=== PATIENT | female | born 1965 | race Two or more races ===

== ENCOUNTER 2023-10-07 12:28 | Inpatient (IN) | payer MEDICAID ==
[~2023-10-07] VITALS: Ht 167.6 cm; Wt 84.0 kg
[2023-10-07 14:18] LABS: Urine Bacteria None Seen /hpf (None Seen)
[2023-10-07 14:41] LABS: Basophils # (auto) 0.1 10 ^3/uL (0-0.2); Basophils % (auto) 1.2 % (0.0-2.0); Eosinophils # (auto) 1.2 10 ^3/uL (0-0.8); Eosinophils % (auto) 12.3 % (0.0-7.0); Hemoglobin 12.3 g/dL (12.2-16.2); Lymphocytes # (auto) 2.2 10 ^3/uL (0.4-5.4); Lymphocytes % (auto) 21.6 % (10.0-50.0); Mean Corpuscular Hemoglobin 30.8 pg (28.0-32.0); Mean Corpuscular Hgb Conc. 34.1 g/dL (32.0-36.0); Mean Corpuscular Volume 90.4 fL (80.0-100.0); Monocytes # (auto) 0.6 10 ^3/uL (0-1.3); Monocytes % (auto) 6.2 % (0.0-12.0); Neutrophils # (auto) 5.8 10 ^3/uL (1.6-8.6); Neutrophils % (auto) 58.7 % (37.0-80.0); Red Blood Cells 3.98 10^6/uL (4.0-5.20); Red Cell Distribution Width 15.1 % (11.8-14.3); White Blood Cell 9.9 10^3/uL (4.4-10.8)
[2023-10-07 14:51] LABS: Urine Blood Negative /uL (Negative); Urine Clarity Clear (Clear); Urine Color Yellow (Yellow); Urine Hyaline Cast FEW /lpf (0 - 2); Urine Mucus FEW (None Seen); Urine Protein, UAD Negative (Negative); Urine Specific Gravity 1.022 (1.001-1.035); Urine Urobilinogen Normal (Negative); Urine WBC 1 /hpf (0 - 5)
[2023-10-07 15:07] LABS: Alanine Aminotransferase 18 U/L (7-40); Albumin 4.1 g/dL (3.2-4.8); Alkaline Phosphatase 70 U/L (46-116); Anion Gap 8 (5-15); Aspartate Aminotransferase 13 U/L (13-40); BUN/Creatinine Ratio 22.4 (10.0-20.0); Bilirubin, Total 0.4 mg/dL (0.2-1.0); Blood Urea Nitrogen 19 mg/dL (9-23); Calcium 9.6 mg/dL (8.7-10.4); Carbon Dioxide 28 mmol/L (20-30); Chloride 104 mmol/L (98-107); Glucose 99 mg/dL (74-106); Potassium 4.1 mmol/L (3.5-5.1); Sodium 140 mmol/L (136-145); Total Protein 6.7 g/dL (5.7-8.2)
[2023-10-07] MEDS: NITROGLYCERIN 0.4 MG SL TAB SL ONE (15:30)
[2023-10-07] MEDS: ASPirin 325 MG TAB PO ONE (16:19)
[2023-10-07] MEDS ORDERED: ACETAMINOPHEN 325 MG TAB PO PRN (16:45)
[2023-10-07] MEDS ORDERED: HYDROcodone-ACET 5/325MG TAB PO PRN (16:45)
[2023-10-07] MEDS ORDERED: ONDANSETRON HCL 4 MG/2 ML VIAL IV PRN (16:45)
[2023-10-07] MEDS ORDERED: NITROGLYCERIN 0.4 MG SL TAB SL PRN (16:45)
[2023-10-07] MEDS ORDERED: MORPHINE SULFATE INJ 2 MG/ml SYRG IV PRN (16:45)
[2023-10-07 17:10] VITALS: PULSE 79; RESP 14; O2SAT 97
[2023-10-07 17:47] LABS: Amphetamine Screen, Urine Pos (NEGATIVE); Barbiturate Scree,Urine Neg (NEGATIVE); Benzodiazephine Screen, Urine Neg (NEGATIVE); Cannabinoid Screen, Urine Pos (NEGATIVE); Cocaine Screen, Urine Neg (NEGATIVE); Opiate Scree,Urine Neg (NEGATIVE); Phencyclidine Screen, Urine Neg (NEGATIVE)
[2023-10-07 22:10] VITALS: PULSE 68
[2023-10-07] MEDS: IOHEXOL 350 MG/ML 100ML IJ ONE (22:24)
[2023-10-07 22:26] VITALS: BP 105/61; PULSE 63; RESP 17; TEMP 97.8; O2SAT 98
[2023-10-07] MEDS ORDERED: ACET-6 PO (22:36)
[2023-10-07] MEDS ORDERED: BUPR450T4 PO (22:36)
[2023-10-07] MEDS ORDERED: GABA-1250 PO (22:36)
[2023-10-07] MEDS ORDERED: FAMO-12 PO (22:36)
[2023-10-08] VITALS (9 sets, daily range): BP systolic 95–140; BP diastolic 49–74; PULSE 56–66; RESP 16–22; TEMP 97.6–98.2; O2SAT 94–100
[2023-10-08] MEDS: SODIUM CHLOR 0.9% PF (SALINE LOCK) 10ML VIAL/SYR IV SCH (00:34)
[2023-10-08] MEDS: IOHEXOL 350 MG/ML 100ML IJ ONE (07:59)
[2023-10-08] MEDS: ENOXAPARIN SOD 40 MG/0.4 ML SYRINGE SC SCH (10:44)
[2023-10-08] MEDS: DOCUSATE SOD 100 MG CAP PO PRN (17:10)
[2023-10-09] VITALS (8 sets, daily range): BP systolic 99–133; BP diastolic 46–71; PULSE 53–76; RESP 15–17; TEMP 36.8; O2SAT 98–100
[2023-10-09 06:34] LABS: Hematocrit 38.2 % (36.0-46.0); Hemoglobin 13.1 g/dL (12.2-16.2); Mean Corpuscular Hemoglobin 31.2 pg (28.0-32.0); Mean Corpuscular Hgb Conc. 34.4 g/dL (32.0-36.0); Mean Corpuscular Volume 90.6 fL (80.0-100.0); Red Blood Cells 4.21 10^6/uL (4.0-5.20); Red Cell Distribution Width 15.1 % (11.8-14.3); White Blood Cell 7.9 10^3/uL (4.4-10.8)
[2023-10-09 06:44] LABS: Band Neutrophils % (manual) 0; Basophils % (manual) 0 (0.0-2.0); Blast Cells 0; Metamyelocytes % 0; Myelocytes % 0; Promyelocytes % 0; Reactive Lymphocytes 0
[2023-10-09 06:47] LABS: Chloride 107 mmol/L (98-107); Potassium 4.3 mmol/L (3.5-5.1); Sodium 142 mmol/L (136-145)
[2023-10-09 06:48] LABS: Anion Gap 4 (5-15); Carbon Dioxide 31 mmol/L (20-30)
[2023-10-09 06:49] LABS: Calcium 9.7 mg/dL (8.7-10.4)
[2023-10-09 06:54] LABS: BUN/Creatinine Ratio 17.4 (10.0-20.0); Blood Urea Nitrogen 12 mg/dL (9-23); Glucose 87 mg/dL (74-106)
[2023-10-09 07:59] LABS: Eosinophils % (manual) 18 (0-7); Large Platelets FEW; Lymphocytes % (manual) 16 (10.0-50.0); Monocytes % (manual) 9 (0-12); Platelet Estimate Adequa
== END 2023-10-09 18:10 | disposition home or self-care (01) | DRG 812 ==
LOC: ER 12:28 → TELE 17:18 → TELE-WESTW 22:10
PROVIDERS: ADMIT Internal Medicine; ATTEND Internal Medicine
DX: T40.711A Poisoning by cannabis, accidental (unintentional), initial encounter (principal); R10.30 Lower abdominal pain, unspecified; R07.89 Other chest pain; E66.9 Obesity, unspecified; F15.10 Other stimulant abuse, uncomplicated; F41.9 Anxiety disorder, unspecified; K21.9 Gastro-esophageal reflux disease without esophagitis; Z96.651 Presence of right artificial knee joint; N63.20 Unspecified lump in the left breast, unspecified quadrant; N63.10 Unspecified lump in the right breast, unspecified quadrant; Z68.30 Body mass index [BMI] 30.0-30.9, adult; Z98.84 Bariatric surgery status; Z82.49 Family history of ischemic heart disease and other diseases of the circulatory system
CPT/HCPCS: 36415; 71275; 74176; 80048; 80053; 80307; 81001; 83605; 83690; 84484; 85007; 85025; 85027; 85379; 93005; 93306; G0378

== ENCOUNTER 2023-10-15 13:00 | Inpatient (IN) | payer MEDICAID ==
[~2023-10-15] VITALS: Ht 167.6 cm; Wt 83.6 kg
[~2023-10-15 13:00] MED LIST: ACET-6 PO; BUPR450T4 PO; FAMO-12 PO; GABA-1250 PO
[2023-10-15 13:30] LABS: Hematocrit 35.6 % (36.0-46.0); Hemoglobin 12.1 g/dL (12.2-16.2); Mean Corpuscular Hemoglobin 30.6 pg (28.0-32.0); Mean Corpuscular Hgb Conc. 33.9 g/dL (32.0-36.0); Mean Corpuscular Volume 90.2 fL (80.0-100.0); Red Blood Cells 3.95 10^6/uL (4.0-5.20); Red Cell Distribution Width 14.9 % (11.8-14.3); White Blood Cell 7.6 10^3/uL (4.4-10.8)
[2023-10-15 13:49] LABS: Band Neutrophils % (manual) 0; Basophils % (manual) 0 (0.0-2.0); Blast Cells 0; Metamyelocytes % 0; Myelocytes % 0; Promyelocytes % 0; Reactive Lymphocytes 0
[2023-10-15 14:08] LABS: Chloride 105 mmol/L (98-107); Potassium 4.1 mmol/L (3.5-5.1)
[2023-10-15 14:09] LABS: Anion Gap 4 (5-15); Calcium 9.6 mg/dL (8.7-10.4); Carbon Dioxide 27 mmol/L (20-30)
[2023-10-15 14:14] LABS: BUN/Creatinine Ratio 21.3 (10.0-20.0); Blood Urea Nitrogen 13 mg/dL (9-23); Glucose 90 mg/dL (74-106)
[2023-10-15 14:15] LABS: Sodium 136 mmol/L (136-145)
[2023-10-15 14:17] LABS: Eosinophils % (manual) 9 (0-7); Lymphocytes % (manual) 27 (10.0-50.0); Monocytes % (manual) 3 (0-12); Platelet Estimate Adequate
[2023-10-16] VITALS (9 sets, daily range): BP systolic 96–115; BP diastolic 42–65; PULSE 50–85; RESP 15–20; TEMP 97.6–98.9; O2SAT 0–100
[2023-10-16] MEDS ORDERED: MORPHINE SULFATE INJ 2 MG/ml SYRG IV PRN (01:15)
[2023-10-16] MEDS ORDERED: NITROGLYCERIN 0.4 MG SL TAB SL PRN (01:15)
[2023-10-16] MEDS ORDERED: ACETAMINOPHEN 325 MG TAB PO PRN (01:15)
[2023-10-16] MEDS ORDERED: DOCUSATE SOD 100 MG CAP PO PRN (01:15)
[2023-10-16] MEDS ORDERED: ONDANSETRON HCL 4 MG/2 ML VIAL IV PRN (01:15)
[2023-10-16] MEDS: SODIUM CHLOR 0.9% PF (SALINE LOCK) 10ML VIAL/SYR IV SCH (06:00)
[2023-10-16] MEDS: FAMOTIDINE (10MG/ML) 2ML VL IV SCH (09:43)
[2023-10-16] MEDS: ASPirin 81 mg TAB PO SCH (09:43)
[2023-10-16] MEDS: HYDROcodone-ACET 5/325MG TAB PO PRN (10:13)
== END 2023-10-16 16:00 | disposition home or self-care (01) | DRG 203 ==
LOC: ER 13:00 → TELE 10-16 01:04 → TELE-WESTW 10-16 02:30
PROVIDERS: ADMIT Internal Medicine Geriatric Medicine; ATTEND Internal Medicine Geriatric Medicine
DX: R07.89 Other chest pain (principal); F41.9 Anxiety disorder, unspecified
CPT/HCPCS: 36415; 80048; 84484; 85007; 85027; 87081; G0378; J3490

== ENCOUNTER 2025-02-28 17:24 | Emergency (ER) | payer MEDICAID ==
[~2025-02-28] VITALS: Ht 167.6 cm; Wt 98.7 kg
[2025-02-28 18:12] LABS: Hematocrit 39.1 % (36.0-46.0); Hemoglobin 13.2 g/dL (12.2-16.2); Mean Corpuscular Hemoglobin 30.3 pg (28.0-32.0); Mean Corpuscular Volume 89.5 fL (80.0-100.0); Nucleated Red Blood Cells % 0.0 %
[2025-02-28 18:16] LABS: Alanine Aminotransferase 24 U/L (7-40); Albumin 4.5 g/dL (3.2-4.8); Anion Gap 8 (5-15); BUN/Creatinine Ratio 10.8 (10.0-20.0); Calcium 9.7 mg/dL (8.7-10.4); Carbon Dioxide 29 mmol/L (20-31); Chloride 105 mmol/L (98-107); Glucose 87 mg/dL (74-106); Sodium 142 mmol/L (136-145); Total Protein 7.5 g/dL (5.7-8.2)
[2025-02-28 18:17] LABS: Alkaline Phosphatase 144 U/L (46-116); Bilirubin, Total 0.2 mg/dL (0.2-1.0); Blood Urea Nitrogen 8 mg/dL (9-23); Potassium 5.2 mmol/L (3.5-5.1)
--- NOTE | 2025-02-28 18:26 | DVH ---
EXAM: XY CHEST PORTABLE HISTORY: htn TECHNIQUE: 1 view of the chest COMPARISON: None FINDINGS/IMPRESSION: LUNGS: No pleural effusion, consolidation, or pneumothorax. MEDIASTINUM: Unremarkable. BONES: No acute osseous abnormality. OTHER: None.
--- NOTE | 2025-02-28 19:23 | ED.PDOC ---
HPI Comments HPI: Poor Historian. 60-year-old female presents to emergency depart for three day history of elevated blood pressure with the associated mild headache. Patient denies taking any medications at home. Patient came to emergency depart for evaluation of this elevated blood pressure history and some mild headache that is nonspecific. Denies any other acute symptoms. Patient points to having some occasional palpitations in the last few days. Past Medical History: Denies any Past Surgical History: Right knee surgery Denies any use of drugs or alcohol REVIEW OF SYSTEMS: CONSTITUTIONAL: Denies acute: fever, diaphoresis, chills, generalized weakness. HEAD: Denies acute: photophobia Eyes: Denies acute: Double vision, vision loss, eye pain, eye discharge. EARS: Denies acute: tinnitus, hearing loss, ear discharge, ear pain, THROAT: Denies acute: sore throat, swelling, difficulty swallowing , pain with swallowing, change in voice. NECK: Denies acute: neck pain, neck swelling, stiff neck. HEART: Denies acute : chest pain, LUNGS: Denies acute: SOB, wheezing, cough, hemoptysis ABDOMEN: Denies acute: abdominal pain, Nausea, Vomiting, diarrhea, melena , hematemesis, hematochezia SKIN: Denies acute: rash, redness, lesions, itchiness. EXTREMITIES: Denies acute: calf pain, numbness, tingling, weakness, denies pain in extremity. Denies acute: Low back pain. Neuro: Denies acute: focal neurological deficit, motor or sensory focal neurological deficit, tremors, seizure like activity, confusion, dizziness, change in mental status, loss of bowel or bladder function, cauda equina like symptoms. : Denies acute: dysuria, hematuria, flank pain, increase in urinary frequency. PSYCH: Denies acute: hallucination, suicidal ideation, homicidal ideation. FEMALE: Denies acute: abnormal vaginal bleeding, foul odor, unusual discharge. PHYSICAL EXAM: General: --------acute distress, awake and alert. Head: normocephalic, atraumatic. No raccoon's eyes, no payan sign. Neck: supple, trachea is midline, no swelling. Throat: Normal phonation. Eyes:, no erythema, no purulent discharge, no proptosis, no icterus. Heart: regular rate, regular rhythm, no significant murmur appreciated. Lungs: no apparent respiratory distress, Able to speak in full sentences. No wheezing, no rhonchi, no crackles. No stridors Clear to auscultation bilaterally. Abdomen: non tender to palpation, non distended, soft, no guarding, no rebound, + bowel sounds. Neuro: Awake, Alert, oriented to name, self, situation, follows commands GCS=15. Speech is normal. Skin: no petechia, no purpura, no cyanosis, non-pale, not jaundice. Lower extremities: --no - Pitting edema no deformity, no focal swelling, no calf TTP. Makes eye contact. moves all four extremities. Face: no apparent facial droop. No CVA tenderness to percussion bilaterally. Ambulating in the ED independently. Ears: Normal appearing TM b/l, Stroke: finger to nose cerebellar testing is intact. No pronator drift. Symmetrical vocational counselor muscle strength b/l PERRLA, EOM-I CN 2-12 are grossly intact, Pedal pulses are palpable. No nystagmus. No nuchal rigidity, Kernig's sign, Brudzinski's sign, no meningeal signs. ED COURSE: DISCLAIMER: This medical document was created using an electronic medical record system with voice recognition software and computerized dictation system. Although this document has been carefully reviewed, there might still be some phonetic and typographical errors. Occasional wrong-word or "sound-alike" substitutions may have occurred due to the inherent limitations of voice recognition software. These areas are purely typographical due to imperfections of the software programs and do not reflect any compromise in the patient's medical care. Please read the chart carefully and recognize, using context, where these substitutions have occurred. Chief Complaint: High Blood Pressure Time Seen by MD: 17:42 Primary Care Provider: ? Reviewed Notes: Allergies Allergies: Coded Allergies: NO KNOWN ALLERGIES (Unverified , 10/07/23) Home Meds Reported Medications Gabapentin (Gabapentin) 300 Mg Cap, 1 CAP PO HS PRN for PAIN SCALE 7 THRU 10 FOR LEG PAIN 10/07/23 Acetaminophen (Acetaminophen Extra Stren) 500 Mg Tab, 1 TAB PO Q6HP PRN for PAIN SCALE 7 THRU 10 10/07/23 Bupropion HCl (Bupropion Hydrochloride E) 450 Mg Tab, 1 TAB PO DAILY 10/07/23 Famotidine (Famotidine) 20 Mg Tab, 1 TAB PO BID 10/07/23 Information Source: Patient Mode of Arrival: Ambulatory Past Medical History PAST MEDICAL HISTORY: Denies Surgical History: JEWEL SAWYER History: No Pertinent JEWEL SAWYER History Family History Family History: Reviewed,noncontributory to illness, Unknown Social History Smoker: Non-Smoker Alcohol: Denies ETOH Use Drugs: Denies Drug Use Lives In: Home X-Ray, Labs, Meds, VS Vital Signs Date Time Temp Pulse Resp B/P (MAP) Pulse Ox O2 Delivery O2 Flow Rate FiO2 02/28/25 20:35 63 19 131/62 (85) 02/28/25 20:03 Room Air 0 02/28/25 19:54 97.6 68 18 149/65 (93) 96 97.6 02/28/25 17:28 97.5 67 16 155/88 96 97.5 Lab Test 02/28/25 18:58 02/28/25 18:53 02/28/25 17:50 Range/Units Urine Color Yellow Yellow Urine Clarity Turbid H Clear Urine pH 5.5 5.0-9.0 Urine Specific [place] 1.009 1.001-1.035 Urine Protein Negative Negative Urine Ketones Negative Negative Urine Blood Negative Negative /uL Urine Nitrite Negative Negative Urine Bilirubin Negative Negative Urine Urobilinogen Normal Negative mg/dL Urine Leukocyte Esterase 3+ Negative /uL Urine RBC 3 0 - 4 /hpf Urine Microscopic WBC 12 H 0-5 /HPF Urine Squamous Epithelial Cells Few <5 /hpf Urine Bacteria Few H None Seen /hpf Urine Glucose Normal Normal mg/dL Urine Opiates Screen Neg NEGATIVE Urine Fentanyl Screen Neg NEGATIVE Urine Barbiturates Screen Neg NEGATIVE Urine Phencyclidine Screen Neg NEGATIVE Urine Amphetamines Screen Neg NEGATIVE Urine Benzodiazepines Screen Neg NEGATIVE Urine Cocaine Screen Neg NEGATIVE Urine Cannabinoids Screen Neg NEGATIVE Troponin I High Sensitivity 13 12 </=34 ng/L White Blood Count 7.1 4.4-10.8 10^3/uL Red Blood Count 4.36 4.0-5.20 10^6/uL Hemoglobin 13.2 12.2-16.2 g/dL Hematocrit 39.1 36.0-46.0 % Mean Corpuscular Volume 89.5 80.0-100.0 fL Mean Corpuscular Hemoglobin 30.3 28.0-32.0 pg Mean Corpuscular Hemoglobin Concent 33.9 32.0-36.0 g/dL Red Cell Distribution Width 14.9 H 11.8-14.3 % Platelet Count 305 140-450 10^3/uL Mean Platelet Volume 7.8 6.9-10.8 fL Neutrophils (%) (Auto) 53.4 37.0-80.0 % Lymphocytes (%) (Auto) 30.9 10.0-50.0 % Monocytes (%) (Auto) 7.9 0.0-12.0 % Eosinophils (%) (Auto) 6.9 0.0-7.0 % Basophils (%) (Auto) 0.9 0.0-2.0 % Neutrophils # (Auto) 3.8 1.6-8.6 10 ^3/uL Lymphocytes # (Auto) 2.2 0.4-5.4 10 ^3/uL Monocytes # (Auto) 0.6 0-1.3 10 ^3/uL Eosinophils # (Auto) 0.5 0-0.8 10 ^3/uL Basophils # (Auto) 0.1 0-0.2 10 ^3/uL Nucleated Red Blood Cells 0.0 % Sodium Level 142 136-145 mmol/L Potassium Level 5.2 H 3.5-5.1 mmol/L Chloride Level 105 98-107 mmol/L Carbon Dioxide Level 29 20-31 mmol/L Anion Gap 8 5-15 Blood Urea Nitrogen 8 L 9-23 mg/dL Creatinine 0.74 0.550-1.02 mg/dL Glomerular Filtration Rate Calc 94 >90 mL/min BUN/Creatinine Ratio 10.8 10.0-20.0 Serum Glucose 87 74-106 mg/dL Calcium Level 9.7 8.7-10.4 mg/dL Total Bilirubin 0.2 0.2-1.0 mg/dL Aspartate Amino Transferase (AST) 28 13-40 U/L Alanine Aminotransferase (ALT) 24 7-40 U/L Alkaline Phosphatase 144 H 46-116 U/L Total Protein 7.5 5.7-8.2 g/dL Albumin 4.5 3.2-4.8 g/dL [facility] [id number] [facility] [address] Ph: [phone] DIAGNOSTIC IMAGING Diagnostic Imaging Report : [id number] Signed PATIENT: UMAIR QUINTEROS ACCT: [id number] UNIT: [id number] : 1965 LOC: ER ROOM / BED: / AGE / SEX: 60 / F ADM STATUS: REG ER SERVICE 54 ORDERING PHYSICIAN: JERI TAPIA DO PROCEDURE(s): HWOCT - HEAD WITHOUT CONTRAST REASON: chilel, htn ORDER NUMBER(s): [id number], ACCESSION NUMBER(s): [id number] EXAM: CT HEAD WITHOUT CONTRAST INDICATION: chilel, htn TECHNIQUE:: CT images of the head were obtained without administration of IV contrast. CT scans at this facility use dose modulation, iterative reconstruction, and/or weight based dosing when appropriate to reduce radiation dose to as low as reasonably achievable. COMPARISON: None FINDINGS: PARENCHYMA: No acute hemorrhage. There is no mass effect, midline shift, or herniation. There is preservation of the sawyer white differentiation. VENTRICLES: No hydrocephalus. EXTRA-AXIAL SPACES: No extra-axial fluid collections. OTHER: The bony structures are intact. Trace fluid along the left posterior inferior mastoid air cells. IMPRESSION: 1. No CT evidence of an acute intracranial abnormality. ATED BY: REJI MIRANDA MD DICTATED DATE/TIME: 02/28/252021 SIGNED BY: REJI MIRANDA MD SIGNED DATE/TIME: 02/28/252021 CC: [address] [address] Ph: [phone] DIAGNOSTIC IMAGING Diagnostic Imaging Report : [id number] Signed PATIENT: UMAIR QUINTEROS ACCT: [id number] UNIT: [id number] : 1965 LOC: ER ROOM / BED: / AGE / SEX: 60 / F ADM STATUS: REG ER SERVICE 174 ORDERING PHYSICIAN: JERI TAPIA DO PROCEDURE(s): CXRP - CHEST PORTABLE REASON: htn ORDER NUMBER(s): [id number], ACCESSION NUMBER(s): [id number] EXAM: XY CHEST PORTABLE HISTORY: htn TECHNIQUE: 1 view of the chest COMPARISON: None FINDINGS/IMPRESSION: LUNGS: No pleural effusion, consolidation, or pneumothorax. MEDIASTINUM: Unremarkable. BONES: No acute osseous abnormality. OTHER: None. ATED BY: REJI MIRANDA MD DICTATED DATE/TIME: 02/28/251822 SIGNED BY: REJI MIRANDA MD SIGNED DATE/TIME: 02/28/251822 CC: Departure 1 Departure Time of Disposition: 19:54 Impression: Primary Impression: Hypertension Additional Impression: UTI (urinary tract infection) Disposition: HOME / SELF CARE / HOMELESS Condition: Stable Additional Instructions: Additional instructions: Please read all instructions provided in this packet carefully. You MUST follow-up with your primary care/family doctor in 1 to 2 days. If you are unable to see your primary care/family doctor, please return to our emergency room for re-assessment and re-evaluation in 1 to 2 days. Return to the emergency room here in our facility or to the nearest ER [facility] if your symptoms change or worsen. CONSULTATIONS: you MUST Follow-up for consultation as soon as possible with: -cardiology in 1-2 days. Please call for appointment. You MUST call the consultants office yourself to make an appointment. You may need to arrange that through your insurance and/or your primary/family doctor. If you are unable to see the surgical consultant in 1 to 2 days, you must return to our emergency room (or any other ER of your choice) for re-assessment and re- evaluation. Adequate fluid hydration. Although you have been discharged from the Emergency Department, this does not mean that you have a "clean bill of health". No definitive diagnosis for your symptoms has been made today. It is possible that you are in the process of developing a serious illness. This is why you must return to the ED without fail if any new or worsening symptoms develop. Monitoring blood pressure at home at least 3 times a day. Below is a copy of your radiological report for follow up: [address] [address] Ph: [phone] DIAGNOSTIC IMAGING Diagnostic Imaging Report : [id number] Signed PATIENT: MONIQUE QUINTEROSDES Brett ACCT: [id number] UNIT: [id number] : 1965 LOC: ER ROOM / BED: / AGE / SEX: 60 / F ADM STATUS: REG ER SERVICE 54 ORDERING PHYSICIAN: JERI TAPIA DO PROCEDURE(s): HWOCT - HEAD WITHOUT CONTRAST REASON: chilel, htn ORDER NUMBER(s): [id number], ACCESSION NUMBER(s): [id number] EXAM: CT HEAD WITHOUT CONTRAST INDICATION: chilel, htn TECHNIQUE:: CT images of the head were obtained without administration of IV contrast. CT scans at this facility use dose modulation, iterative reconstruction, and/or weight based dosing when appropriate to reduce radiation dose to as low as reasonably achievable. COMPARISON: None FINDINGS: PARENCHYMA: No acute hemorrhage. There is no mass effect, midline shift, or herniation. There is preservation of the sawyer white differentiation. VENTRICLES: No hydrocephalus. EXTRA-AXIAL SPACES: No extra-axial fluid collections. OTHER: The bony structures are intact. Trace fluid along the left posterior inferior mastoid air cells. IMPRESSION: 1. No CT evidence of an acute intracranial abnormality. ATED BY: REJI MIRANDA MD DICTATED DATE/TIME: 02/28/252021 SIGNED BY: REJI MIRANDA MD SIGNED DATE/TIME: 02/28/252021 CC: e-Prescriptions Amlodipine Besylate (Amlodipine Besylate) 10 Mg Tab 1 TAB PO DAILY for 7 Days, #7 TAB 0 Refills Prov: JERI TAPIA DO 02/28/25 Nitrofurantoin Monohydrate Mac (Macrobid) 100 Mg Cap 100 MG PO BID for 7 Days, #14 CAP Prov: JERI TAPIA DO 02/28/25 Discharged With: Self I personally scribed for JERI TAPIA DO ([email or web address]) on 02/28/25 at 20:53. Electronically submitted by Wayne Barraza ([email or web address]). JERI TAPIA DO Feb 28, 2025 19:22
[2025-02-28 19:43] LABS: Urine Protein, UAD Negative (Negative)
[2025-02-28 19:53] LABS: Amphetamine Screen, Urine Neg (NEGATIVE)
[2025-02-28 19:54] VITALS: TEMP 97.6; O2SAT 96
[2025-02-28 19:59] LABS: Barbiturate Scree,Urine Neg (NEGATIVE); Benzodiazephine Screen, Urine Neg (NEGATIVE); Cannabinoid Screen, Urine Neg (NEGATIVE); Cocaine Screen, Urine Neg (NEGATIVE); Opiate Scree,Urine Neg (NEGATIVE); Phencyclidine Screen, Urine Neg (NEGATIVE)
--- NOTE | 2025-02-28 20:24 | DVH ---
EXAM: CT HEAD WITHOUT CONTRAST INDICATION: chilel, htn TECHNIQUE:: CT images of the head were obtained without administration of IV contrast. CT scans at this facility use dose modulation, iterative reconstruction, and/or weight based dosing when appropriate to reduce radiation dose to as low as reasonably achievable. COMPARISON: None FINDINGS: PARENCHYMA: No acute hemorrhage. There is no mass effect, midline shift, or herniation. There is preservation of the sawyer white differentiation. VENTRICLES: No hydrocephalus. EXTRA-AXIAL SPACES: No extra-axial fluid collections. OTHER: The bony structures are intact. Trace fluid along the left posterior inferior mastoid air cells. IMPRESSION: 1. No CT evidence of an acute intracranial abnormality.
[2025-02-28 20:35] VITALS: BP 131/62; PULSE 63; RESP 19
[2025-02-28] MEDS ORDERED: NITR-87 PO (21:09)
[2025-02-28] MEDS ORDERED: AMLO1TAB23 PO (21:09)
== END 2025-02-28 21:05 | disposition home or self-care (01) ==
LOC: ER 17:24
DX: I10 Essential (primary) hypertension (principal); N39.0 Urinary tract infection, site not specified; Z79.899 Other long term (current) drug therapy; Z98.890 Other specified postprocedural states
CPT/HCPCS: 36415; 70450; 71045; 80053; 80307; 81001; 84484; 85025